=== PATIENT | male | born 1955 | race Caucasian/White ===

== ENCOUNTER 2016-10-22 09:59 | Day surgery (SDC) | payer OTHER ==
[~2016-10-22] VITALS: Ht 172.7 cm; Wt 83.0 kg
[~2016-10-22 09:59] MED LIST: ALBU8.5H8 INH; AMLO5TAB2 PO
[2016-10-22] MEDS ORDERED: LACTATED RINGERS 1,000 ML IV SCH (10:21)
[2016-10-22 10:48] VITALS: BP 132/82
[2016-10-22] MEDS ORDERED: BUPIVACAINE/PF 0.5% ONE (11:31)
[2016-10-22] MEDS ORDERED: ROCURONIUM 10 MG/ML ONE (12:33)
[2016-10-22] MEDS ORDERED: SUCCINYLCHOLINE 20 MG/ML, 10ML ONE (12:33)
[2016-10-22] MEDS ORDERED: CEFAZOLIN 1,000 MG ONE (12:33)
[2016-10-22] MEDS ORDERED: ONDANSETRON 2MG/ML, 2ML ONE (12:33)
[2016-10-22] MEDS ORDERED: PROPOFOL 10 MG/ML, 20ML ONE (12:33)
[2016-10-22] MEDS ORDERED: FENTANYL PF 100 MCG/2ML ONE (12:57)
[2016-10-22] MEDS ORDERED: OXYcodone 5 MG/5 ML ORAL.SOL UDC PO PRN (13:00)
[2016-10-22] MEDS ORDERED: MEPERIDINE/PF 25MG/0.5ML IVPush PRN (13:00)
[2016-10-22] MEDS ORDERED: ONDANSETRON 2MG/ML, 2ML IVPush PRN (13:00)
[2016-10-22] MEDS ORDERED: ACETAMINOPHEN 325 MG TABLET PO PRN (13:00)
[2016-10-22] MEDS ORDERED: HYDROmorphone 1 MG/ML, 1ML IV PRN (13:00)
[2016-10-22] MEDS ORDERED: FENTANYL PF 100 MCG/2ML IV PRN (13:00)
[2016-10-22] MEDS ORDERED: PROMETHAZINE 25 MG/ML, 1ML IV PRN (13:00)
[2016-10-22] MEDS ORDERED: LABETALOL 5MG/ML, 20ML IV PRN (13:00)
[2016-10-22] MEDS ORDERED: hydrALAzine 20 MG/ML, 1ML IV PRN (13:00)
[2016-10-22] MEDS ORDERED: MIDAZOLAM 1 MG/ML, 2ML IV PRN (13:00)
[2016-10-22] MEDS ORDERED: ACETAMINOPHEN 650 MG/20.3 ML UDC ONE (13:59)
[2016-10-22] MEDS ORDERED: OXYcodone 5 MG/5 ML ORAL.SOL UDC ONE (13:59)
== END 2016-10-22 15:40 ==
LOC: STAR 09:59 → OUT 15:40
PROVIDERS: ATTEND Surgery
DX: K42.9 Umbilical hernia without obstruction or gangrene (principal); I10 Essential (primary) hypertension; J45.909 Unspecified asthma, uncomplicated
CPT/HCPCS: 49585; 93005; C1781; J0330; J0690; J2405; J2704; J3010; J3490; J7120

== ENCOUNTER → 2019-04-17 | Outpatient (CLI) | payer MEDICAID, OTHER ==
[~2019-04-17] MED LIST changes: +AMLO-150 PO; -AMLO5TAB2 PO
== END | disposition home or self-care (01) ==
LOC: CVU 08:00
PROVIDERS: ATTEND Family Medicine
DX: I08.0 Rheumatic disorders of both mitral and aortic valves (principal); I42.9 Cardiomyopathy, unspecified
CPT/HCPCS: 93306

== ENCOUNTER → 2019-12-07 | Outpatient (CLI) | payer OTHER | END | disposition home or self-care (01) | LOC: CFH 13:46 | PROVIDERS: ATTEND Internal Medicine Cardiovascular Disease | DX: I06.1 Rheumatic aortic insufficiency (principal); I11.9 Hypertensive heart disease without heart failure; I42.9 Cardiomyopathy, unspecified | CPT/HCPCS: 93306 ==